=== PATIENT | female | born 1955 ===

== ENCOUNTER 2017-10-01 08:13 | Day surgery (SDC) | payer MEDICAID ==
[2017-10-01] MEDS ORDERED: Propofol 10 mg/ml Inj (20 ML) ONE (09:45)
[2017-10-01] MEDS ORDERED: Lactated Ringer's 500 ML IV ONE (10:10)
[2017-10-01] MEDS ORDERED: Midazolam 2 MG/2 ML VIAL ONE (10:18)
[2017-10-01] MEDS ORDERED: Ofloxacin 0.3% Ophth Soln ONE (10:26)
[2017-10-01] MEDS ORDERED: Oxymetazoline 0.05% Nasal Spray (30 ml) NS ONE (10:26)
[2017-10-01 13:05] VITALS: BP 118/83; PULSE 66; RESP 20; TEMP 98; O2SAT 100
--- NOTE | 2017-10-01 22:03 | OP ---
PROCEDURE DATE: 10/01/2017 SURGEON: Edmond Frye M.D. PREOPERATIVE DIAGNOSIS: Left chronic otitis media. POSTOPERATIVE DIAGNOSIS: Left chronic otitis media. PROCEDURE: Left myringotomy with tubes. SIGNIFICANT FINDINGS: Fluid noted behind the left TM. DESCRIPTION OF PROCEDURE: The patient was brought into the room, placed in supine position. Anesthesia was initiated through facemask. The head was turned. The left ear was brought into view using operative microscope and ear speculum. Radial incision was made in the eardrum in the anterior inferior quadrant. Fluid was noted behind the TM and suctioned out. Tube was placed. Floxin was placed. The ear speculum and microscope were taken out of position. The patient was taken off anesthesia and taken to the recovery room in stable manner. Edmond Frye MD
== END 2017-10-01 12:15 | disposition home or self-care (01) ==
LOC: C.SDS 08:13
PROVIDERS: ATTEND Otolaryngology
DX: H66.12 Chronic tubotympanic suppurative otitis media, left ear (principal)
CPT/HCPCS: 69436; 82948; J2250; J2704; J3010; J7120